=== PATIENT | female | born 1945 | race Caucasian/White ===

== ENCOUNTER → 2019-05-30 | Outpatient (CLI) | payer OTHER ==
[~2019-05-30] VITALS: Ht 157.5 cm; Wt 68.0 kg
[~2019-05-30] MED LIST: AMARYL4 MG PO; ASPIR 8181 MG PO; LIPITOR 20 MG T20 M1 PO; NORCO 5-325 TA1 EAC1 PO; PLAVIX 75 MG TA75 M1 PO; SYNTHROID100 MC1 PO
[2019-05-30 09:42] LABS: HEMATOCRIT 40.8 % (37.0-47.0); HEMOGLOBIN 13.7 gm/dL (12.0-15.0); MCH 29.5 pg (26.0-34.0); MCHC 33.7 g/dL (28.0-37.0); MCV 87.6 fL (80.0-100.0); RBC 4.66 mil/uL (4.20-5.00); RDW 13.2 % (10.5-14.5); WBC 7.3 thou/uL (4.0-11.0)
[2019-05-30 09:44] VITALS: BP 168/63
[2019-05-30 09:50] LABS: CALCIUM 9.1 mg/dL (8.5-10.1); CREATININE 0.9 mg/dL (0.6-1.0); POTASSIUM 3.9 mmol/L (3.5-5.1)
== END | disposition home or self-care (01) ==
LOC: SPEC 09:05
PROVIDERS: Nuclear Medicine Nuclear Cardiology
DX: I70.238 Atherosclerosis of native arteries of right leg with ulceration of other part of lower leg (principal); I70.1 Atherosclerosis of renal artery; E11.51 Type 2 diabetes mellitus with diabetic peripheral angiopathy without gangrene; L97.919 Non-pressure chronic ulcer of unspecified part of right lower leg with unspecified severity; I10 Essential (primary) hypertension; I25.10 Atherosclerotic heart disease of native coronary artery without angina pectoris; E03.9 Hypothyroidism, unspecified; Z90.49 Acquired absence of other specified parts of digestive tract; Z98.41 Cataract extraction status, right eye; Z98.42 Cataract extraction status, left eye; Z98.890 Other specified postprocedural states; Z79.899 Other long term (current) drug therapy

== ENCOUNTER → 2019-06-09 | Outpatient (CLI) | payer OTHER ==
[~2019-06-09] VITALS: Ht 157.5 cm; Wt 68.0 kg
[2019-06-09 07:47] VITALS: BP 150/66
[2019-06-09 08:00] LABS: HEMATOCRIT 37.1 % (37.0-47.0); HEMOGLOBIN 12.6 gm/dL (12.0-15.0); MCH 29.6 pg (26.0-34.0); MCV 86.9 fL (80.0-100.0); RBC 4.27 mil/uL (4.20-5.00); RDW 13.1 % (10.5-14.5); WBC 7.7 thou/uL (4.0-11.0)
[2019-06-09 08:11] LABS: CALCIUM 9.3 mg/dL (8.5-10.1); POTASSIUM 3.9 mmol/L (3.5-5.1)
== END | disposition home or self-care (01) ==
LOC: CATH 07:06
PROVIDERS: Nuclear Medicine Nuclear Cardiology
DX: I70.212 Atherosclerosis of native arteries of extremities with intermittent claudication, left leg (principal); E11.51 Type 2 diabetes mellitus with diabetic peripheral angiopathy without gangrene; D86.9 Sarcoidosis, unspecified; Z79.82 Long term (current) use of aspirin; Z79.899 Other long term (current) drug therapy; Z98.890 Other specified postprocedural states; Z79.4 Long term (current) use of insulin

== ENCOUNTER → 2019-10-08 | Outpatient (CLI) | payer OTHER ==
[~2019-10-08] VITALS: Ht 157.5 cm; Wt 68.0 kg
--- NOTE | ~2019-10-08 | HC ---
[facility] [address] [place] [address] CONSULTATION Name: IAIN NEGRETE Room #: REG ERNESTO BianchiPerla#: [id number] Admission: 10/08/19 Attend Phys: Leonides Arroyo MD, Discharge: Date of : 41 Report #: [id number] THIS REPORT FOR: //name// CC: MICAELA physician/PCP Leonides Arroyo CARDIOLOGY CONSULT HISTORY OF PRESENT ILLNESS: The patient is a 74-year-old female, who I am asked to evaluate prior to peripheral vascular intervention. No documented coronary artery disease. Had some progressive shortness of breath and some intermittent chest pressure, although limited by claudication. She denies PND or orthopnea, perhaps a slight decrease in exercise tolerance. She denies any current alcohol or tobacco use. She has had a history of hypertension and diabetes. She has had a prior SFA intervention on the right side. It looks like there may be some significant left-sided restenosis on the left SFA. This is associated with claudication and also followed by her interior painter, Dr. Dirk Jesus. PAST MEDICAL HISTORY: Positive for peripheral vascular disease, hypertension, hypercholesterolemia, diabetes, DJD, sarcoidosis, prior , lung biopsy, and cholecystectomy. SOCIAL HISTORY: She is . She lives in [place], [place]. No current alcohol or tobacco. Has never smoked. Lives with her daughter and 2 of her grandsons. REVIEW OF SYSTEMS: Essentially negative except for stated above. PHYSICAL EXAMINATION: VITAL SIGNS: Blood pressure 156/82 and pulse is 90 and regular. HEENT: Eyes reveal no xanthelasmas. Pharynx is clear. NECK: Shows preserved upstrokes without JVD or bruits. LUNGS: Clear. CARDIOVASCULAR: Regular rate and rhythm, S1 and S2, without murmur or gallop. ABDOMEN: Soft. No HSM or abdominal bruit. EXTREMITIES: Cannot palpate the DP or PT on the left, the right side is faintly palpable distally. NEUROLOGIC: Nonfocal. SKIN: Warm and dry without xanthoma or ulcer. There are mild venous stasis changes. NEUROLOGIC: Intact, nonfocal. ASSESSMENT: 1. Chest pressure, rule out underlying coronary artery disease. 2. Peripheral vascular disease with history of bilateral SFA stents and a progressive stenosis in the left SFA with claudication. [facility] [address] [place] [address] CONSULTATION Name: IAIN NEGRETE Room #: REG ERNESTO Arias.#: [id number] Admission: 10/08/19 Attend Phys: Leonides Arroyo MD, Discharge: Date of : 41 Report #: [id number] 3. Hypertension. 4. Diabetes. 5. Hypercholesterolemia. 6. History of sarcoid. RECOMMENDATIONS AND PLAN: I will proceed to the catheterization lab with Dr. Carrasco and the coronary intervention is indicated here as opposed to delaying this and stress testing. Discussed the risks and benefits with the patient. We will proceed with cardiac catheterization and lower extremity angiography and possible intervention. Thank you for allowing us to assist in the care of this patient. By: [id number] /nt
[2019-10-08 07:11] VITALS: BP 186/78
--- NOTE | 2019-10-08 08:22 | EKG ---
[place] [address] [facility] [place] [address] ELECTROCARDIOGRAM REPORT Name: JOAN NEGRETESHAYY BERUMEN Room #: REG [facility] [id number] Admission: 10/08/19 Attend Phys: Leonides Arroyo MD, Discharge: Date of : 41 Report #: [id number] THIS REPORT FOR: //name// [facility] Test Date: 2019-10-08 Test Time: 07:11:33 Pat Name: IAIN NEGRETE Department: Room: Gender: F [employer] Forms: Clarita GOMEZ : 1945 Requested By: Leonides Arroyo Order Number: [id number] MD: Maximino Ochoa Measurements Intervals [place] Rate: 97 P: 35 [place]: 150 QRS: -40 QRSD: 86 T: 25 QT: 373 QTc: 474 Interpretive Statements Sinus rhythm Inferior infarct, old No previous ECG available for comparison Electronically Signed On 10-08-2019 8:21:43 [employer] by Maximino Ochoa [email or web address] <ELECTRONICALLY SIGNED> By: Maximino Ochoa MD 10/08/19 08 0 0 Maximino Ochoa MD /RENNY
--- NOTE | 2019-10-12 08:52 | CATHLAB ---
[facility] [address] [place] [address] INVASIVE PROCEDURE REPORT Name: IAIN NEGRETE Room #: REG Darshana#: [id number] Admission: 10/08/19 Attend Phys: Leonides Arroyo, Discharge: Date of : 41 Report #: [id number] THIS REPORT FOR: //name// APPROVED REPORT Study performed: 10/08/2019 07:57:02 Patient Details Patient Status: Out-Patient Room #: The patient is a 74 year-old female Event Personnel Leonides Arroyo Hydraulic Press Operator, Elizabeth Rojas RTR, ENDOSCOPY TECHNICAN Monitor, Olvin Tobin RN, Urszula Addison RN RN, Rosalba Crawford RTR Scrub Procedures Performed Art Access - R femoral artery* Left Heart Cath w/or w/o Coronaries [id number] [facility] [address] Initial Mod Sed Same Phys/QHP Gr5y 873129 Hemostasis w/ Mynx 94501 Mod Sed Same Phys/QHP Ea 556161 Indication Positive stress test Procedure Narrative The Right Groin^ was infiltrated with 1% Lidocaine subcutaneous anesthesia. A PINNACLE 6FR Sheath #[id number] sheath was inserted into the RFA^. Coronary angiography was performed using coronary diagnostic catheters. The right coronary system was accessed and visualized with a JR4 catheter. The left coronary system was accessed and visualized with a JL4 catheter. The left ventricle was accessed and visualized with a Pigatail catheter. Left ventricular/Aortic Valve gradient assessed via catheter pullback. Left ventriculogram was performed in 30 degree projection. Closure device was deployed with a 6 Fr MYNX CONTROL 6F/7F #[id number]. The patient tolerated the procedure well and there were no complications associated with the procedure. There was no hematoma. Intraoperative Conscious Sedation Sedation start time: 08:27 Case end Time: 10:40 Fentanyl 100 mcg Versed 2 mg Conscious sedation is a combined total of left heart cath procedure and bilateral runoff/stent/dcb procedures. [facility] [address] [place] [address] INVASIVE PROCEDURE REPORT Name: IAIN NEGRETE ATA Room #: REG [facility]#: [id number] Admission: 10/08/19 Attend Phys: Leonides Arroyo, Discharge: Date of : 41 Report #: [id number] Fluoro time/dose and contrast is a combined total of left heart cath procedure and bilateral runoff/stent/dcb procedures. Fluoro Time: 11.80 minutes Dose: DAP 86717.54 cGycm2 933 mGy Contrast Type and Amount: Omnipaque 75 ml Hemodynamics The aortic pressure is 162/67 mmHg with a mean of 99 mmHg. The left ventricular pressure is 174/11 mmHg with a mean of mmHg. The left ventricular end diastolic pressure is 29 mmHg. PCI Technique Lesion Percutaneous coronary intervention was performed on the Prox com femoral. Conclusion #1 left main is short free of disease giving rise to LAD and circumflex widely patent #2 the LAD is an eccentric proximal lesion of 40% with a preserved distal vessel this extends to the apex in his a diffusely disease and attenuated vessel distally #3 circumflex OM is codominant but large distribution widely patent #4 a smaller codominant RCA is mildly diseased #5 normal left ventricular size and systolic function EF 55-60% Recommendations plan: Continue aggressive risk factor modification. No indication for coronary intervention. <ELECTRONICALLY SIGNED> By: Leonides Arroyo MD, FACC 10/12/19 0852 1 Leonides Arroyo MD, FACC /INF
== END | disposition home or self-care (01) ==
LOC: CATH 06:38
DX: R94.39 Abnormal result of other cardiovascular function study (principal); I25.10 Atherosclerotic heart disease of native coronary artery without angina pectoris; I70.212 Atherosclerosis of native arteries of extremities with intermittent claudication, left leg; I70.1 Atherosclerosis of renal artery; I10 Essential (primary) hypertension; E11.9 Type 2 diabetes mellitus without complications; E78.00 Pure hypercholesterolemia, unspecified; M19.90 Unspecified osteoarthritis, unspecified site; Z98.890 Other specified postprocedural states; Z79.899 Other long term (current) drug therapy; Z90.49 Acquired absence of other specified parts of digestive tract; Z79.82 Long term (current) use of aspirin

== ENCOUNTER → 2020-01-20 | Outpatient (CLI) | payer OTHER | LOC: SJCVCIMAG 08:46 | DX: I70.201 Unspecified atherosclerosis of native arteries of extremities, right leg (principal); E11.51 Type 2 diabetes mellitus with diabetic peripheral angiopathy without gangrene; E78.00 Pure hypercholesterolemia, unspecified; M79.604 Pain in right leg; M79.605 Pain in left leg; Z95.820 Peripheral vascular angioplasty status with implants and grafts; Z90.49 Acquired absence of other specified parts of digestive tract; Z79.82 Long term (current) use of aspirin; Z79.899 Other long term (current) drug therapy ==

== ENCOUNTER → 2020-07-22 | Outpatient (CLI) | payer OTHER | LOC: SJCVCIMAG 09:29 | PROVIDERS: ATTEND Podiatrist Foot Surgery | DX: I70.201 Unspecified atherosclerosis of native arteries of extremities, right leg (principal); E11.51 Type 2 diabetes mellitus with diabetic peripheral angiopathy without gangrene; E78.00 Pure hypercholesterolemia, unspecified; Z95.820 Peripheral vascular angioplasty status with implants and grafts; Z79.899 Other long term (current) drug therapy ==

== ENCOUNTER 2020-12-14 03:25 | Emergency (ER) | payer OTHER ==
[~2020-12-14] VITALS: Ht 160 cm; Wt 59.0 kg
[2020-12-14 06:08] VITALS: BP 138/52
[2020-12-15] MEDS ORDERED: TOPROL XL25 MG PO (10:03)
== END 2020-12-14 06:29 | disposition home or self-care (01) ==
LOC: ER 03:25
DX: M79.605 Pain in left leg (principal); R06.00 Dyspnea, unspecified; E11.51 Type 2 diabetes mellitus with diabetic peripheral angiopathy without gangrene; Z95.828 Presence of other vascular implants and grafts; Z87.442 Personal history of urinary calculi; Z79.82 Long term (current) use of aspirin; Z79.899 Other long term (current) drug therapy

== ENCOUNTER → 2020-12-15 | Outpatient (CLI) | payer OTHER ==
[~2020-12-15] VITALS: Ht 157.5 cm; Wt 63.6 kg
[~2020-12-15] MED LIST changes: +TOPROL XL25 MG PO
[2020-12-15 09:53] VITALS: BP 169/63
[2020-12-15 09:55] LABS: HEMOGLOBIN 12.6 gm/dL (12.0-15.0); MCH 29.7 pg (26.0-34.0); MCHC 33.1 g/dL (28.0-37.0); MCV 89.7 fL (80.0-100.0); RBC 4.24 mil/uL (4.20-5.00); RDW 13.2 % (10.5-14.5); WBC 7.6 thou/uL (4.0-11.0)
[2020-12-15 10:03] LABS: CALCIUM 9.2 mg/dL (8.5-10.1); CREATININE 0.8 mg/dL (0.6-1.0); POTASSIUM 3.8 mmol/L (3.5-5.1)
== END ==
LOC: CATH 09:05
PROVIDERS: ATTEND Nuclear Medicine Nuclear Cardiology
DX: E11.51 Type 2 diabetes mellitus with diabetic peripheral angiopathy without gangrene (principal); I70.202 Unspecified atherosclerosis of native arteries of extremities, left leg; Z79.84 Long term (current) use of oral hypoglycemic drugs; N20.0 Calculus of kidney; I12.9 Hypertensive chronic kidney disease with stage 1 through stage 4 chronic kidney disease, or unspecified chronic kidney disease; E11.22 Type 2 diabetes mellitus with diabetic chronic kidney disease; N18.9 Chronic kidney disease, unspecified; E78.00 Pure hypercholesterolemia, unspecified; Z90.49 Acquired absence of other specified parts of digestive tract; Z79.01 Long term (current) use of anticoagulants; Z79.82 Long term (current) use of aspirin; Z95.820 Peripheral vascular angioplasty status with implants and grafts; M79.662 Pain in left lower leg

== ENCOUNTER → 2020-12-15 | Outpatient (CLI) | payer OTHER | LOC: SJCVCIMAG 07:20 | PROVIDERS: ATTEND Nuclear Medicine Nuclear Cardiology | DX: I73.9 Peripheral vascular disease, unspecified (principal); M79.605 Pain in left leg; E78.00 Pure hypercholesterolemia, unspecified; E11.51 Type 2 diabetes mellitus with diabetic peripheral angiopathy without gangrene; Z95.828 Presence of other vascular implants and grafts; Z90.49 Acquired absence of other specified parts of digestive tract; Z79.82 Long term (current) use of aspirin; Z79.899 Other long term (current) drug therapy ==

== ENCOUNTER → 2021-03-14 | Outpatient (CLI) | payer OTHER | LOC: SJCVCIMAG 09:40 | PROVIDERS: ATTEND Nuclear Medicine Nuclear Cardiology | DX: I70.203 Unspecified atherosclerosis of native arteries of extremities, bilateral legs (principal); I77.9 Disorder of arteries and arterioles, unspecified; E11.8 Type 2 diabetes mellitus with unspecified complications; E78.00 Pure hypercholesterolemia, unspecified; Z95.820 Peripheral vascular angioplasty status with implants and grafts; Z79.82 Long term (current) use of aspirin; Z79.899 Other long term (current) drug therapy ==

== ENCOUNTER → 2021-10-04 | Outpatient (CLI) | payer OTHER | LOC: SJCVCIMAG 09:56 | PROVIDERS: ATTEND Nuclear Medicine Nuclear Cardiology | DX: I65.23 Occlusion and stenosis of bilateral carotid arteries (principal); I70.203 Unspecified atherosclerosis of native arteries of extremities, bilateral legs; I77.9 Disorder of arteries and arterioles, unspecified; E11.8 Type 2 diabetes mellitus with unspecified complications; E78.00 Pure hypercholesterolemia, unspecified; Z79.82 Long term (current) use of aspirin; Z79.899 Other long term (current) drug therapy ==

== ENCOUNTER 2021-11-04 08:59 | Emergency (ER) | payer OTHER ==
[~2021-11-04] VITALS: Ht 157.5 cm; Wt 67.1 kg
[2021-11-04 10:13] LABS: URINE BLOOD NEGATIVE (Negative); URINE CLARITY SL CLOUDY; URINE COLOR YELLOW; URINE GLUCOSE-RANDOM* NEGATIVE (Negative); URINE KETONES TRACE (Negative); URINE LEUKOCYTES-REFLEX NEGATIVE (Negative); URINE NITRITE-REFLEX NEGATIVE (Negative); URINE PROTEIN (DIPSTICK) NEGATIVE (Negative); URINE SPECIFIC GRAVITY >= 1.030 (1.005-1.035)
[2021-11-04 10:15] LABS: ICTOTEST (BILI CONFIRMATORY) Negative (Negative); URINE BILIRUBIN NEGATIVE (Negative)
[2021-11-04 11:04] LABS: BASOPHILS 0.8 % (0.0-2.0); EOSINOPHILS 1.8 % (0.0-3.0); HEMATOCRIT 38.2 % (37.0-47.0); HEMOGLOBIN 12.7 gm/dL (12.0-15.0); LYMPHOCYTES 21.8 % (24.0-44.0); MCH 29.4 pg (26.0-34.0); MCHC 33.4 g/dL (28.0-37.0); MONOCYTES 6.3 % (1.0-8.0); PLATELET COUNT 281 thou/uL (150-400); POLYS 69.3 % (36.0-66.0); RBC 4.33 mil/uL (4.20-5.00); RDW 12.8 % (10.5-14.5); WBC 7.3 thou/uL (4.0-11.0)
[2021-11-04 11:12] LABS: CALCIUM 8.5 mg/dL (8.5-10.1); POTASSIUM 4.1 mmol/L (3.5-5.1)
[2021-11-04] MEDS ORDERED: PERCOCET 5-3251 EACH PO (11:48)
[2021-11-04 12:18] VITALS: BP 125/50
== END 2021-11-04 12:19 | disposition home or self-care (01) ==
LOC: ER 08:59
PROVIDERS: Student in an Organized Health Care Education/Training Program
DX: M79.605 Pain in left leg (principal); E11.9 Type 2 diabetes mellitus without complications; Z79.899 Other long term (current) drug therapy